=== PATIENT | male | born 1965 | race Caucasian/White ===

== ENCOUNTER 2021-08-05 08:16 | Outpatient (RCR) | payer BC, SELFPAY ==
[2021-08-05 12:25] VITALS: BP 102/67; PULSE 93; TEMP 36.3; O2SAT 100
[2021-08-05] MEDS: FAMOTIDINE 20 MG TABLET PO (12:29)
[2021-08-05] MEDS: diphenhydrAMINE HCl CAP 25 MG CAPSULE PO (12:29)
[2021-08-05 14:00] VITALS: BP 141/76
--- NOTE | 2021-08-06 10:48 | PC.NURSE ---
Patient states that he is feeling better after monoclonal antibody infusion.
== END 2021-08-05 17:00 ==
LOC: AMCINF 08:16
PROVIDERS: PCP Internal Medicine; Visit Provider Internal Medicine Hematology & Oncology
DX: U07.1 COVID-19 (principal); I10 Essential (primary) hypertension; E11.9 Type 2 diabetes mellitus without complications
CPT/HCPCS: A9270; M0245; Q0245